=== PATIENT | male | born 1970 | race Caucasian/White ===

== ENCOUNTER 2021-06-18 10:09 | Emergency (ER) | payer BC ==
[~2021-06-18] VITALS: Ht 177.8 cm; Wt 125.0 kg
[2021-06-18 10:16] VITALS: BP 196/117
[2021-06-18] MEDS ORDERED: IV NORMAL SALINE 1,000ML 1,000 ML IV SCH (10:30)
[2021-06-18] MEDS ORDERED: KETOROLAC 30 MG/ML VIAL. IVP ONE (10:50)
[2021-06-18] MEDS ORDERED: ONDANSETRON PF 4 MG/2 ML VIAL. IVP ONE (10:50)
[2021-06-18] MEDS ORDERED: KETOROLAC 15 MG/ML VIAL. IVP ONE (11:00)
--- NOTE | 2021-06-18 11:09 | RAD ---
CT of the abdomen and pelvis without contrast. 06/18/2021 10:48 AM Indication: Flank pain Comparison Study: None. Technique: Multidetector CT imaging of the abdomen pelvis is obtained without administration of contr ast. Findings: The visualized bilateral lung bases are clear. There is a 4 mm stone at the left ureterovesicular junction causing mild left-sided hydronephrosis an d hydroureter. Periureteric and perinephric stranding is seen. No other stones are identified on the left. The right kidney is unremarkable without evidence of neph rolithiasis, or obstructive uropathy. The right ureter is normal in course and caliber. Large geographic areas of variable attenuation are seen in the liver in a pattern suggestive of hepat ic steatosis. The adrenal glands are unremarkable. The spleen and pancreas are unremarkable.The appen daniel is visualized without evidence of appendicitis. There is fecalization of material within the terminal ileum. Formed stool as well as mild gaseous dis tention also noted in the proximal colon. Evaluation is somewhat limited without enteric and IV contr ast. A stricture in the hepatic flexure cannot be excluded. No acute osseous changes are identified. Impression: 1. 4 mm stone, left ureterovesicular junction with mild left hydroureter and hydronephrosis, and mild associated inflammatory change. 2. Fecalization of material within the terminal ileum. Formed stool as well as mild gaseous distentio n also noted in the proximal colon. Evaluation is somewhat limited without enteric and IV contrast. A stricture in the hepatic flexure cannot be excluded. Recommend gastroenterology consultation and con sideration of endoscopy when clinically feasible. 3. Geographic areas of variable density in the liver suggestive of hepatic steatosis. CT DOSING PQRS STATEMENT: One or more of the following individualized dose reduction techniques were utilized for this examinat ion: 1. Automated exposure control 2. Adjustment of the mA and/or kV according to patient size 3. Use of iterative reconstruction technique Electronically signed by: Chavez Izaguirre MD (06/18/2021 11:07 AM) [id number]
--- NOTE | 2021-06-18 11:25 | PHYS DOC ---
Past History Past Surgical History: No Surgical History General Adult EDM: Chief Complaint: FLANK PAIN HPI: HPI: Patient is a 50-year-old male who presents with left-sided flank pain that radiates into his left abdomen. Patient reports that symptoms started on Wednesday. Denies nausea, vomiting, diarrhea. Denies fever. No chest pain or shortness of breath. Patient reports he has been using ice pack to the area which is helped with pain. Patient is also been taking Tylenol at home. Denies medical history. Review of Systems: Review of Systems: ROS At least 10 ROS systems have been reviewed and are negative except as documented in the HPI. General: Negative except as outlined in HPI above. Skin: Negative except as outlined in HPI above. HEENT: Negative except as outlined in HPI above. Neck: Negative except as outlined in HPI above. Respiratory: Negative except as outlined in HPI above.. Cardiovascular: Negative except as outlined in HPI above. Abdomen: Negative except as outlined in HPI above. : Negative except as outlined in HPI above. Back/MSK: Negative except as outlined in HPI above. Neuro: Negative except as outlined in HPI above. Psych: Negative except as outlined in HPI above. Current Medications: Current Meds: Current Medications Medications (Trade) Dose Ordered Sig/Twila Start Time Stop Time Status Last Admin Dose Admin Ketorolac Tromethamine (Toradol 15mg Vial) 15 mg 1X ONCE 06/18/21 11:00 06/18/21 11:01 DC Ketorolac Tromethamine (Toradol 30mg Vial) 15 mg 1X ONCE 06/18/21 10:50 06/18/21 10:50 DC Ondansetron HCl (Zofran) 4 mg PRN 1X ONCE 06/18/21 10:50 06/18/21 10:51 DC Sodium Chloride 1,000 ml @ 1,000 mls/hr Q1H 06/18/21 10:30 06/18/21 11:29 Allergies: Allergies: Allergies Coded Allergies Type Severity Reaction Last Updated Verified egg Allergy Unknown 06/18/21 Yes milk Allergy Unknown 06/18/21 Yes Physical Exam: PE: Constitutional: Well developed, well nourished, no acute distress, non-toxic appearance. [] HENT: Normocephalic, atraumatic, bilateral external ears normal, oropharynx moist, no oral exudates, nose normal. [] Eyes: PERRLA, EOMI, conjunctiva normal, no discharge. [] Neck: Normal range of motion, no tenderness, supple, no stridor. [] Cardiovascular:Heart rate sinus tachycardia Lungs & Thorax: Bilateral breath sounds clear to auscultation [] Abdomen: Bowel sounds normal, soft, lower abdominal tenderness Skin: Warm, dry, no erythema, no rash. [] Back: No tenderness, left-sided CVA tenderness Extremities: No tenderness, no cyanosis, no clubbing, ROM intact, no edema. [] Neurologic: Alert and oriented X 3, normal motor function, normal sensory function, no focal deficits noted. [] Psychologic: Affect normal, judgement normal, mood normal. [] Current Patient Data: Vital Signs: Vital Signs Date Time Temp Pulse Resp B/P (MAP) Pulse Ox O2 Delivery O2 Flow Rate FiO2 06/18/21 10:16 98.8 18 196/117 (143) 99 EKG: EKG: [] Radiology/Procedures: Radiology/Procedures: []CT of the abdomen and pelvis without contrast. 06/18/2021 10:48 AM Indication: Flank pain Comparison Study: None. Technique: Multidetector CT imaging of the abdomen pelvis is obtained without administration of contrast. Findings: The visualized bilateral lung bases are clear. There is a 4 mm stone at the left ureterovesicular junction causing mild left- sided hydronephrosis and hydroureter. Periureteric and perinephric stranding is seen. No other stones are identified on the left. The right kidney is unremarkable without evidence of nephrolithiasis, or obstructive uropathy. The right ureter is normal in course and caliber. Large geographic areas of variable attenuation are seen in the liver in a pattern suggestive of hepatic steatosis. The adrenal glands are unremarkable. The spleen and pancreas are unremarkable.The appendix is visualized without evidence of appendicitis. There is fecalization of material within the terminal ileum. Formed stool as well as mild gaseous distention also noted in the proximal colon. Evaluation is somewhat limited without enteric and IV contrast. A stricture in the hepatic flexure cannot be excluded. No acute osseous changes are identified. Impression: 1. 4 mm stone, left ureterovesicular junction with mild left hydroureter and hydronephrosis, and mild associated inflammatory change. 2. Fecalization of material within the terminal ileum. Formed stool as well as mild gaseous distention also noted in the proximal colon. Evaluation is somewhat limited without enteric and IV contrast. A stricture in the hepatic flexure cannot be excluded. Recommend gastroenterology consultation and consideration of endoscopy when clinically feasible. 3. Geographic areas of variable density in the liver suggestive of hepatic steatosis. CT DOSING PQRS STATEMENT: One or more of the following individualized dose reduction techniques were utilized for this examination: 1. Automated exposure control 2. Adjustment of the mA and/or kV according to patient size 3. Use of iterative reconstruction technique Electronically signed by: Chavez Izagiurre MD (06/18/2021 11:07 AM) [id number] Heart Score: C/O Chest Pain: No Risk Factors: Risk Factors: DM, Current or recent (<one month) smoker, HTN, HLP, family history of CAD, obesity. Risk Scores: Score 0 - 3: 2.5% MACE over next 6 weeks - Discharge Home Score 4 - 6: 20.3% MACE over next 6 weeks - Admit for Clinical Observation Score 7 - 10: 72.7% MACE over next 6 weeks - Early Invasive Strategies Course & Med Decision Making: Course & Med Decision Making Pertinent Labs and Imaging studies reviewed. (See chart for details) [] 50-year-old male presents with left-sided flank and abdominal pain. Work-up in ER consist of EKG, labs, urinalysis, CT abdomen and pelvis. Patient's pain was treated while in the ER. 4 mm stone, left ureterovesicular junction with mild left hydroureter and hydronephrosis. Patient given Flomax, hydrocodone. CT also showed large amount of stool. Patient did report being constipated. Patient given Colace and mag citrate. Advised patient to return to the ER if he does not have a bowel movement in the next 24 hours. Sending patient home with strainer, hydrocodone, prescription for Flomax. Discussed return precautions with patient. Patient states he understands discharge instructions. Dragon Disclaimer: Dragon Disclaimer: This electronic medical record was generated, in whole or in part, using a voice recognition dictation system. Departure Departure: Impression: Primary Impression: Kidney stone on left side Disposition: HOME / SELF CARE / HOMELESS Condition: STABLE Referrals: ILDEFONSO GAMING MD (PCP) Patient Instructions: Diet for Kidney Stones Additional Instructions: You are seen the emergency room for flank pain. CT of your abdomen and pelvis showed a kidney stone on the left side. Make sure that you are drinking plenty of fluids at home. I am also giving you a prescription for Flomax along with a strainer. Please use the strainer when you urinate to catch the stone. You can take ibuprofen at home along with pain medication that I am prescribing. Your CT also showed stool. I am giving you a Colace here and send you home with mag citrate that you will need to drink. If you do not have a bowel movement in 24 hours return to the emergency room for follow-up. EMERGENCY DEPARTMENT GENERAL DISCHARGE INSTRUCTIONS Thank you for coming to [facility] (ED) today and trusting us with you care. We trust that you had a positivie experience in our Emergency Department. If you wish to speak to the department management, you may call the director at [phone]. YOUR FOLLOW UP INSTRUCTIONS ARE FOLLOWS: 1. Do you have a private Doctor? If you do not have a private doctor, please ask for a resource list of physicians or clinics that may be able to assist you with follow up care. 2. The Emergency Physician has interpreted your x-rays. The X-Ray specialist will also review them. If there is a change in the findings, you will be notified in 48 hours when at all possible. 3. A lab test or culture has been done, your results will be reviewed and you will be notified if you need a change in treatment. ADDITIONAL INSTRUCTIONS AND INFORMATION: 1. Your care today has been supervised by a physician who is specially trained in emergency care. Many problems require more than one evaluation for a complete diagnosis and treatment. We recommend that you schedule your follow up appointment as recommended to ensure complete treatment of you illness or injury. If you are unable to obtain follow up care and continue to have a problem, or if your condition worsens, we recommend that you return to the ED. 2. We are not able to safely determine your condition over the phone nor are we able to give sound medical advice over the phone. For these safety reasons, if you call for medical advice we will ask you to come to the ED for further evaluation. 3. If you have any questions regarding these discharge instructions please call the ED at [phone]. SAFETY INFORMATION: In the interest of safety, wellness, and injury prevention; we encourage you to wear your sealbelt, if you smoke; quite smoking, and we encourage family to use a protective helmet for bicycling and other sporting events that present an increased risk for head injury. IF YOUR SYMPTOMS WORSEN OR NEW SYMPTOMS DEVELOP, OR YOU HAVE CONCERNS ABOUT YOUR CONDITION; OR IF YOUR CONDITION WORSENS WHILE YOU ARE WAITING FOR YOUR FOLLOW UP APPOINTMENT; EITHER CONTACT YOUR PRIMARY CARE DOCTOR, THE PHYSICIAN WHOSE NAME AND NUMBER YOU WERE GIVEN, OR RETURN TO THE ED IMMEDIATELY. Scripts Tamsulosin Hcl (FLOMAX) 0.4 Mg Cap.er.24h 0.4 MG PO DAILY for kidney stone for 7 Days, #7 CAP.SR Prov: EMILE DE DIOS APRN 06/18/21 Hydrocodone Bit/Acetaminophen (HYDROCODONE-APAP 5-325 ) 1 Each Tablet 0.5-1 TAB PO PRN Q6HRS PRN for PAIN for 3 Days, #12 TAB 0 Refills Prov: EMILE DE DIOS APRN 06/18/21 EMILE DE DIOS APRN Jun 18, 2021 11:25
[2021-06-18 11:50] LABS: BASO % 0 % (0-3); EOS # 0.1 x10^3/uL (0.0-0.7); EOS % 1 % (0-3); HEMATOCRIT 45.4 % (39.0-53.0); HEMOGLOBIN 15.6 g/dL (13.0-17.5); LYMPH # 1.2 x10^3/uL (1.0-4.8); LYMPH % 9 % (24-48); MEAN CORPUSCULAR HEMOGLOBIN 31 pg (25-35); MEAN CORPUSCULAR HGB CONC 34 g/dL (31-37); MEAN CORPUSCULAR VOLUME 89 fL (79-100); MONO # 1.2 x10^3/uL (0.0-1.1); MONO % 9 % (0-9); NEUT % 81 % (31-73); PLATELET COUNT 241 x10^3/uL (140-400); RED BLOOD COUNT 5.08 x10^6/uL (4.30-5.70); RED CELL DISTRIBUTION WIDTH 13.2 % (11.5-14.5); WHITE BLOOD COUNT 13.5 x10^3/uL (4.0-11.0)
[2021-06-18 12:02] LABS: CREATININE 1.5 mg/dL (0.7-1.3); GFR 49.1; POTASSIUM 3.9 mmol/L (3.5-5.1)
--- NOTE | 2021-06-18 12:09 | EKG ---
[address] [address] Test Date: 2021-06-18 Test Time: 12:01:25 Pat Name: GABBIE VILLEDA Department: Room: Gender: M Admission Specialist: CLAUDIA : [id number] Requested By: EMILE DE DIOS Order Number: [id number] Reading MD: Murali Winchester MD Measurements Intervals [place] Rate: 86 P: 54 PA: 150 QRS: -7 QRSD: 88 T: 2 QT: 352 QTc: 424 Interpretive Statements SINUS RHYTHM Electronically Signed On 06-20-2021 17:43:47 CDT by Murali Winchester MD
[2021-06-18] MEDS ORDERED: TAMSULOSIN 0.4 MG CAP.ER.24H. PO ONE (12:45)
[2021-06-18] MEDS ORDERED: MAGNESIUM CITRATE 296 ML SOLUTION. PO ONE (12:45)
[2021-06-18] MEDS ORDERED: HYDROcodone/APAP 5/325MG 1 TAB TABLET PO ONE (12:45)
[2021-06-18] MEDS ORDERED: DOCUSATE SODIUM 100 MG CAPSULE PO ONE (12:45)
[2021-06-18 13:05] LABS: BACTERIA,URINE 0 /HPF (0-FEW); CLARITY,URINE CLEAR; COLOR,URINE YELLOW; GLUCOSE,URINE NEG (NEG); NITRITE,URINE NEG (NEG); RBC,URINE 20-40 /HPF (0-2); SQUAMOUS EPITHELIAL CELL,UR FEW /LPF; UROBILINOGEN,URINE 0.2 mg/dL (0.2 mg/dL)
[2021-06-18] MEDS ORDERED: HYDR-2155 PO (13:42)
[2021-06-18] MEDS ORDERED: TAMS0.4C97 PO (13:42)
== END 2021-06-18 14:04 | disposition home or self-care (01) ==
LOC: ER 10:09
DX: N13.2 Hydronephrosis with renal and ureteral calculous obstruction (principal); Z91.012 Allergy to eggs; Z91.011 Allergy to milk products
CPT/HCPCS: 36415; 74176; 80048; 81001; 85025; 87086; 93005; 96361; 96374; 96375; 99285; J1885; J2405; J7030